=== PATIENT | male | born 1950 | race Caucasian/White ===

== ENCOUNTER 2024-11-05 09:49 | Outpatient (CLI) | payer OTHER, SELFPAY ==
--- NOTE | 2024-11-05 06:00 | DI.RAD_ITS ---
Exam(s) XR PAIN CLINIC CERVICAL SP 2V EXAM: XR PAIN CLINIC CERVICAL SP 2V CLINICAL HISTORY: Dx: Cervical Spondylosis TECHNIQUE: 2D and realtime digital imaging was performed. CONTRAST MATERIAL: Refer to procedure report. COMPARISON: No exams were available for comparison FINDINGS: Fluoroscopy was provided for Dr. Disla during the performance of a facet joint injection. Please refer to the procedure report for complete details. Ka,r=9.41 mGy IMPRESSION: RADIATION DOSE DELIVERED: 0.0 0.0 0
[2024-11-05 10:13] VITALS: BP 123/87; PULSE 67; RESP 18; TEMP 37; O2SAT 97
--- NOTE | 2024-11-05 10:25 | PDOC.PAIN_ITS ---
Date of service: 11/05/24 Time of Service: 11:08 Pain Managment Procedure Note Procedure Note Procedure Note: Cervical Facet Joint Injection of Steroid ? Location: Right Facet Joint ? Levels: C7-T1 ? Pre-procedure Diagnosis: M47.812 Spondylosis without myelopathy or radiculopathy, cervical region ? Post-procedure Diagnosis:? The same as above ? Sedation:? None ? Estimated blood loss:? less than 2 cc ? Surgeon: Stevie Disla MD COMMENT: Patient has multiple levels of facet arthritis the worst is at C7-T1 where he points to where he describes his pain. CT images are the best to ident aubrey this. PRE PROCEDURE PAIN SCORE: 6/10. Decision was made to proceed with intra- articular facet injections for the possibility of not having to do medial branch blocks and radiofrequency ablation if patient get long lasting relief (> 3 months). ? Procedure Detail:? The procedure and potential risks were explained to the patient and informed written consent was obtained. The patient was escorted to the procedure room and placed in the left lateral decubitus position. Pillows were utilized for proper positioning and comfort.? Time out was performed in the procedure room with nursing staff confirming the patient's identity, procedure to be performed, allergies, and any blood thinning or anti- platelet medications.? Sterile technique was maintained throughout the procedure.? The patient's cervical area was prepped with chlorhexidine and draped in a sterile fashion. A lateral fluoroscopic view was obtained, with visualization of the facet joint.? A 25gauge, Quincke needle was gently advanced through the facet capsule.? Needle placement was confirmed with fluoroscopy in AP,? and lateral views by injecting 0.25cc of contrast.? 10 mg of depomedrol and 0.25ml of 0.5% bupivacaine was injected into the capsule at C7-T1 right.? The patient tolerated the procedure well and was discharged with instructions. Permanent images saved and recorded. PAIN: PRE-PROCEDURE 6/10 POST-PROCEDURE 10 Plan:? Follow up prn COMMENT: Difficult access to the joint. Well before the patient left patient had greater than 30% pain relief.? Will use this as both diagnostic and potentially therapeutic.? With short-term relief from the level that it was not long-lasting then we can consider proceed with radiofrequency ablation. The alternative would be to repeat both the right and left under CT guidance. Would send Mr. Canchola to [facility] interventional radiology for that. Coding Conscious Sedation used for procedure: No CPT Codes: CMBB (includes Fluoro) Cervical/Thoracic, single lvl - 43201 ([id number] ~G) Additional Codes: Date of Service (53052) Date of service: 11/05/24
[2024-11-05 10:42] VITALS: PULSE 69; O2SAT 94
[2024-11-05 10:50] VITALS: PULSE 68; O2SAT 94
[2024-11-05] MEDS: Nerve Block Tray 1 EACH MC (11:07)
[2024-11-05] MEDS: methylPREDNISolone ACETATE 80 MG/ML VIAL IJ (11:08)
[2024-11-05] MEDS: Bupivacaine 0.5% Pres-Free 10 ML VIAL IJ (11:08)
== END 2024-11-05 09:50 | disposition home or self-care (01) ==
LOC: PC 09:50
PROVIDERS: PCP Nurse Practitioner Adult Health; Visit Provider Anesthesiology Pain Medicine
DX: M47.812 Spondylosis without myelopathy or radiculopathy, cervical region (principal)
CPT/HCPCS: 64490; 72040; J0665; J1010

== ENCOUNTER 2025-01-15 13:02 | Outpatient (CLI) | payer OTHER, SELFPAY ==
[2025-01-15] VITALS (7 sets, daily range): BP systolic 121–139; BP diastolic 37–80; PULSE 56–69; RESP 18–24; TEMP 37.1; O2SAT 92–97
--- NOTE | 2025-01-15 13:33 | PDOC.PAIN_ITS ---
Date of service: 01/15/25 Time of Service: 13:33 Pain Managment Procedure Note Procedure Note Procedure Note: PROCEDURE NOTE RIGHT SIDED CERVICAL MEDIAL BRANCH BLOCKS Date of Service: January 15, 2025 Patient: Harris Canchola Provider: Nimesh Holland DO, MPH Harris Canchola has been referred to the [facility] for cervical medial branch blocks. Pre-operative diagnosis: Cervical Spondylosis without Myelopathy ICD-10 M47.812 Post-operative diagnosis: Same Pre-procedure pain: VAS= 7/10 COMMENTS: I previously evaluated him in the office. Harris? was interviewed and the medical records were reviewed. There were no medical, pharmacologic, radiographic or other structural contraindications to attempting fluoroscopically guided local anesthetic cervical medial branch blocks. Risks and potential side effects were discussed. I also discussed the potential benefit(s) of the procedure with Harris, and voiced concerns were addressed. After Harris was completely informed about the procedure, the printed consent form was signed. A standard time-out procedure was performed. Harris was placed in the lateral decubitus position on the fluoroscopy table with the effected side up. Automated blood pressure cuff and pulse oximeter were applied. The skin entry points for approaching the anatomic target points of the segmental medial branches of Right C3,C4,C5 were identified with fluoroscopy and marked. The skin at the target site area was thoroughly prepared with Chlorhexadine. The skin was then draped. Next, a 25 gauge 3.5 spinal needle was placed under fluoroscopic guidance down on to the target point (the articular pillar) for each respective segmental medial branch. Position was confirmed in A/P and lateral views. Aspiration revealed no blood or clear fluid. Next, 0.25ml of omnipaque 240 was injected at each level. No contrast following a vascular or neural pattern was visualized under continuous fluoroscopy. Next, 0.25 ml of preservative-free 0.5% bupivicaine was injected at each level. (49 mls of Omnipaque was wasted) There was no unusual discomfort expressed by Harris. The needles were withdrawn without difficulty. Harris was observed and was without hemodynamic, neurologic, or allergic reactions.? Fluoroscopic images were digitally archived. Harris's vital signs were stable throughout the procedure and were as recorded in the doc flowsheet by the nursing staff. Provacative testing using the Modified Anne's facet loading test- Right side Directly before the block VAS (0-10) = 4/10 5 minutes after the block VAS (0-10) = 4/10 Percentage relief obtained with this diagnostic block 0% Any improved physical functioning directly after the blocks? None Follow up plans and appointments were discussed with Harris. Harris was instructed to keep careful note of how the usual pain was modified by these injections. Specifically, to keep a pain diary for the next 4 hours using a numeric pain scale of 0-10 and report these results. Post procedure instruction was given as documented in the nursing documentation and having met discharge criteria, the patient was [facility] the [facility]. Based on the medial branches blocked today, if Harris has adequate relief and we are able to proceed to radiofrequency ablation, the treatment should result in the denervation of the Right C3-C4 and C4-C5 facet joints. We would expect to denervate a total of 2 facets during the radiofrequency ablation. COMMENTS: No apparent complications. Post-procedure pain: VAS= 4/10. Harris will call back with 0-4 hour post-procedure pain scores. I personally performed the entire procedure. NIMESH HOLLAND DO, MPH ABPM&R-subspecialty board certification in Pain Medicine [facility] Coding Conscious Sedation used for procedure: No CPT Codes: CMBB (includes Fluoro) Cervical/Thoracic, 2nd lvl - 37132 ([id number] ~G) Right CMBB (includes Fluoro) Cervical/Thoracic, single lvl - 67582 ([id number] ~G) Right Additional Codes: Date of Service (16546) Date of service: 01/15/25 Diagnoses: Cervical spondylosis without myelopathy
--- NOTE | 2025-01-15 13:57 | DI.RAD_ITS ---
Exam(s) XR PAIN CLINIC CERVICAL SP 2V EXAM: XR PAIN CLINIC CERVICAL SP 2V CLINICAL HISTORY: Dx: Cervical Spondylosis. TECHNIQUE: Fluoroscopy was provided for the referring physician for guidance with performing pain clinic injection procedure. COMPARISON: No exams were available for comparison FINDINGS: Please see procedure note for details. Fluoro time: 37.7 seconds RADIATION DOSE DELIVERED: td Hinojosa=2.76 mGy
[2025-01-15] MEDS: Omnipaque 240 MG/ML 50 ML BTL IJ (14:00)
[2025-01-15] MEDS: Nerve Block Tray 1 EACH MC (14:01)
[2025-01-15] MEDS: Bupivacaine 0.5% Pres-Free 10 ML VIAL IJ (14:01)
== END 2025-01-15 13:03 | disposition home or self-care (01) ==
LOC: PC 13:03
PROVIDERS: Visit Provider Preventive Medicine Occupational Medicine
DX: M47.812 Spondylosis without myelopathy or radiculopathy, cervical region (principal)
CPT/HCPCS: 64490; 64491; 72040; J0665; Q9967

== ENCOUNTER 2025-04-16 12:51 | Outpatient (CLI) | payer OTHER, SELFPAY ==
[2025-04-16 13:39] VITALS: BP 162/69; PULSE 62; RESP 20; TEMP 37; O2SAT 95
--- NOTE | 2025-04-16 14:25 | PDOC.PAIN_ITS ---
Date of service: 04/16/25 Time of Service: 14:25 US Guided Injections Type of Ultrasound Guided Injection: Neck Left Trapezius muscle and Shoulder Left Trigger Point Injection Pre-Procedural Evaluation Pain to the left trapezius Referral Patient has been referred to the [facility] for Left Trapezius muscle Neck Trigger Point Injection for a chief complaint of Left upper trapezius muscle pain Pre-Procedural Pain Score Pre-procedural pain score: 6/10 Reason for Exam muscle pain Patient Interview Patient was interviewed and medical record reviewed: Yes There were no contraindications to performing an US guided procedure. Risks,expected side effects, potential benefits were reviewed. The patient consent form was signed and witnessed. Standard time out procedure was performed. Patient Safety No obvious skin lesion at the site of the proposed injection Procedure Description Patient was placed in the prone position and the following Pulse Ox applied. Pre-Procedure ultrasound scanning performed using a Linear 9 MHz probe Site Preparation Chloroprep Local Anesthesia Skin and subcutaneous tissues anesthetized with: 3 mL of Lidocaine 2%. A Other (1.5 Skin needle) was placed under live US guidance using an in-plane approach to the target area. After visualization of the needle tip at the target area Depo-Medrol 40mg per cc and Lidocaine 2% were used. Total of Injectate/Medication Note: 5 cc of 2% Lidocaine and 1 cc of Depomedrol Negative aspiration for blood. [place] were removed without difficulty. Ultrasound images were captured and stored. Patient Mental Status Patient was alert during procedure Vital Signs Vital signs were stable throughout the procedure and recorded by nursing. Follow Up/Discharge Follow up plans and appointments were discussed with patient. Post procedure instruction was given as documented in nursing documentation. Discharge criteria met and patient discharged from [facility] Management Center: Yes Post Procedure Pain Post Procedure Pain: 0/10 Patient tolerated procedure well Procedure Outcome: Successful Comments: He tolerated the procedure well. Ultrasound image saved. Non US Guided Injections Procedure Description Patient was placed in the prone position Post Procedure Pain Post Procedure Pain: 0/10 Coding Conscious Sedation used for procedure: No CPT Codes: TPI Single/Multi 1 or 2 Muscles - 31412 ([id number] ~G) Ultrasound Additional Codes: Date of Service () Visualization of the needle tip - Ultrasound images captured/stored: Yes ([id number]) Diagnoses: muscle pain
[2025-04-16 14:32] VITALS: PULSE 65; O2SAT 95
[2025-04-16] MEDS: Nerve Block Tray 1 EACH MC (14:39)
[2025-04-16] MEDS: Lidocaine 2% Pres-Free 5 ML VIAL IJ (14:40)
[2025-04-16] MEDS: methylPREDNISolone ACETATE 40 MG/ML VIAL IJ (14:40)
== END 2025-04-16 12:52 | disposition home or self-care (01) ==
LOC: PC 12:53
PROVIDERS: Visit Provider Preventive Medicine Occupational Medicine
DX: M25.512 Pain in left shoulder (principal); M79.18 Myalgia, other site
CPT/HCPCS: 20552; 76942; J1010